=== PATIENT | female | born 1945 | race Caucasian/White ===

== ENCOUNTER 2018-12-15 15:18 | Emergency (ER) | payer MEDICARE, OTHER ==
[~2018-12-15] VITALS: Ht 162.6 cm; Wt 76.2 kg
[2018-12-15] MEDS ORDERED: LIDOCAINE 1% INJ 20 ML 20 ML VIAL ONE (15:27)
[2018-12-15] MEDS ORDERED: TETANUS,DIPTH,PERTUSS P/F (BOOSTRIX) 0.5 ML VIAL IM ONE ×2 (15:27→15:30)
[2018-12-15] MEDS ORDERED: LIDOCAINE 1% INJ 20 ML 20 ML VIAL INJ ONE (15:30)
--- NOTE | 2018-12-15 15:30 | ED Upper Extremity ---
General Chief Complaint: Laceration Stated Complaint: LACERATION ON MIDDLE FINGER OF LT HAND Source: patient Exam Limitations: no limitations History of Present Illness Date Seen by Provider: December 15, 2018 Time Seen by Provider: 15:23 Initial Comments Patient presents to ER by private conveyance with chief complaint that just prior to arrival she cut her left hand middle finger with a battery operated hand trimmer causing a laceration on the palmar side. She has not had a tetanus shot in over 15 years. She is not on blood thinners. She is on Keflex daily for interstitial cystitis with frequent UTIs 250 milligrams a day. Allergies and Home Medications Allergies Coded Allergies: levofloxacin (Verified Allergy, Unknown, 12/15/18) morphine (Verified Allergy, Unknown, 12/15/18) sulfamethoxazole (Verified Allergy, Unknown, 12/15/18) Home Medications Amoxicillin/Potassium Clav 1 Each Tablet, 1 EACH PO BID Prescribed by: MANOJ VELASCO on 12/15/18 8114 Patient Home Medication List Home Medication List Reviewed: Yes Review of Systems Constitutional: No chills, No diaphoresis EENTM: No ear discharge, No ear pain Respiratory: No cough, No short of breath Cardiovascular: No chest pain, No edema Past Ofaiilg-Azmujc-Osinza Hx Patient Social History Alcohol Use: Denies Use Recreational Drug Use: No Smoking Status: Never a Smoker Physical Exam Vital Signs Vital Signs - First Documented 12/15/18 15:25 Temp 96.9 Pulse 109 Resp 18 B/P (MAP) 134/94 (107) Pulse Ox 96 Capillary Refill : Height, Weight, BMI Height: '" Weight: lbs. oz. kg; BMI Method: General Appearance: WD/WN, mild distress HEENT: PERRL/EOMI, normal ENT inspection, TMs normal, pharynx normal Cardiovascular: normal peripheral pulses, regular rate, rhythm Respiratory: no respiratory distress, no accessory muscle use Hand: normal ROM, Left, laceration (left hand third digit palmar side 2.5 cm flap-shaped be laceration without foreign debris), nail injury Neurologic/Tendon: normal sensation, normal motor functions, normal tendon functions, responds to pain, no evidence tendon injury Neurologic/Psychiatric: no motor/sensory deficits, alert, normal mood/affect, oriented x 3 Procedures/Interventions Wound Location: Upper Extremities Other Wound Location Left hand third digit palmar side Wound Length (cm): 2.5 Wound's Depth, Shape: flap, sub Q Wound Explored: no foreign body removed Irrigated w/ Saline (ccs): 200 Betadine Prep?: Yes (chlorhexidine) Anesthesia: 1% Lidocaine Volume Anesthetic (ccs): 4 Wound Debrided: minimal Suture: Ethlion Suture Size: 4-0 Number of Sutures: 5 Progress Patient's wounds cleaned thoroughly with chlorhexidine soap water and then soaked with Betadine. Digital block was applied and a small 1 cc local block was applied with 1% lidocaine without epinephrine. When the patient was numb we then reapproximated skin edges with 5 simple interrupted sutures and the wound was hemostatic. Patient tolerated procedure well. Progress/Results/Core Measures Results/Orders My Orders Orders - MANOJ VELASCO Lidocaine 1% Inj 20 Ml (Xylocaine 1% Inj (12/15/18 15:30) Dipht,Pertuss(Acell),Tet Adult (Boostrix (12/15/18 15:30) Lidocaine 1% Inj 20 Ml (Xylocaine 1% Inj (12/15/18 15:27) Dipht,Pertuss(Acell),Tet Adult (Boostrix (12/15/18 15:27) Medications Given in ED Current Medications Medications Dose Ordered Sig/John Route Start Time Stop Time Status Last Admin Dose Admin Diphtheria/ Tetanus/Acell Pertussis 0.5 ml ONCE ONCE IM 12/15/18 15:30 12/15/18 15:31 DC 12/15/18 15:34 0.5 ML Lidocaine HCl 20 ml ONCE ONCE INJ 12/15/18 15:30 12/15/18 15:31 DC 12/15/18 15:33 5 ML Vital Signs/I&O 12/15/18 12/15/18 15:25 15:59 Temp 96.9 96.9 Pulse 109 109 Resp 18 18 B/P (MAP) 134/94 (107) 134/94 (107) Pulse Ox 96 96 Progress Progress Note : Time: 15:54 Progress Note T Dep and Augmentin. Patient has pain pills at home if she needs them. Departure Impression Primary Impression: Laceration of finger of left hand without damage to nail Qualified Codes: S61.213A - Laceration without foreign body of left middle finger without damage to nail, initial encounter Disposition: HOME, SELF-CARE Condition: Improved Departure-Patient Inst. Decision time for Depature: 15:54 Referrals: DENA FRANCO APRN (PCP/Family) Primary Care Physician Patient Instructions: Laceration Repair With Stitches (DC) Add. Discharge Instructions: Keep the wound clean with regular soap and water only. You may apply a small layer of Vaseline under the dressing. Change the dressing daily or as it becomes soiled. Do not submerse her hand and water to wash dishes or bathe. It's okay to shower or wash your hands. If you start to have some bleeding apply direct pressure and raise it above the level of your heart. bend up the Augmentin and take one tablet twice a day for the next 3 days to prevent infection. Discontinue your Keflex while you're on the Augmentin. It's okay to resume Keflex after you're done with the Augmentin. Follow-up in 10 days with primary care or return to the ER to have your sutures removed. Return to the doctor sooner if you start to see increasing pain, swelling, redness or discharge from the wound. All discharge instructions reviewed with patient and/or family. Voiced understanding. Scripts Amoxicillin/Potassium Clav (Augmentin 875-125 Tablet) 1 Each Tablet 1 EACH PO BID for 3 Days, #6 TAB 0 Refills Prov: MANOJ VELASCO 12/15/18 MANOJ VELASCO December 15, 2018 15:30
[2018-12-15] MEDS ORDERED: AMOX-358 PO (15:57)
[2018-12-15 15:59] VITALS: BP 134/94
== END 2018-12-15 16:00 | disposition home or self-care (01) ==
LOC: ER FS 15:20
DX: S61.213A Laceration without foreign body of left middle finger without damage to nail, initial encounter (principal); Z88.5 Allergy status to narcotic agent; Z23 Encounter for immunization; Z88.2 Allergy status to sulfonamides; Z88.8 Allergy status to other drugs, medicaments and biological substances; W29.8XXA Contact with other powered hand tools and household machinery, initial encounter
CPT/HCPCS: 12042; 64450; 90471; 90715

== ENCOUNTER → 2019-08-08 | Outpatient (CLI) | payer MEDICARE, OTHER ==
[~2019-08-08] MED LIST: AMOX-358 PO
--- NOTE | 2019-08-08 09:46 | Diagnostic Imaging Report ---
INDICATION: Mid back pain. Time of exam 8:41 AM Frontal and lateral views of the thoracic spine were obtained. Curvature and alignment is normal. Vertebral body heights are maintained. No compression fracture is seen. Pedicles and paraspinous line are intact. There is mild generalized spondylosis. IMPRESSION: No acute bony abnormality is detected. Dictated by: Dictated on workstation # [id number]
== END ==
LOC: RAD FS 08:34
PROVIDERS: ATTEND Nurse Practitioner Family
DX: M54.9 Dorsalgia, unspecified (principal)
CPT/HCPCS: 72070

== ENCOUNTER → 2019-12-21 | Outpatient (CLI) | payer MEDICARE, OTHER ==
--- NOTE | 2019-12-21 12:49 | Diagnostic Imaging Report ---
INDICATION: Cough. TIME OF EXAM: 12:33 PM No prior studies are available for comparison. FINDINGS: The heart size is normal. Tiny calcified nodules left mid and upper lung tapia are noted consistent with granulomas. No infiltrates are seen. No effusion or pneumothorax is detected. Pulmonary vascularity is normal. IMPRESSION: No acute cardiopulmonary process is detected. Dictated by: Dictated on workstation # [id number]
== END ==
LOC: RAD FS 12:16
PROVIDERS: ATTEND Nurse Practitioner Family
DX: R05 Cough (principal)
CPT/HCPCS: 71046

== ENCOUNTER → 2019-12-25 | Outpatient (CLI) | payer MEDICARE, OTHER ==
--- NOTE | 2019-12-25 10:33 | Diagnostic Imaging Report ---
PROCEDURE: CT chest without contrast. TECHNIQUE: Multiple contiguous axial images were obtained through the chest without the use of intravenous contrast. Auto Exposure Controls were utilized during the CT exam to meet ALARA standards for radiation dose reduction. INDICATION: Chronic cough. FINDINGS: There are a few calcified granulomas. There are no suspicious pulmonary nodules, masses or infiltrates. There is no pleural or pericardial fluid. No pneumothorax. Heart size is normal. Thoracic aorta is normal in caliber. There are coronary artery calcifications. There is no pathologically enlarged adenopathy in the chest. The visualized intra-abdominal structures are unremarkable. There are mild degenerative changes in the spine. IMPRESSION: No suspicious pulmonary nodules, masses or infiltrates. Coronary artery calcification. Dictated by: Dictated on workstation # [id number]
== END ==
LOC: RAD FS 10:06
PROVIDERS: ATTEND Nurse Practitioner Family
DX: R05 Cough (principal); J84.10 Pulmonary fibrosis, unspecified
CPT/HCPCS: 71250

== ENCOUNTER → 2020-08-16 | Outpatient (CLI) | payer MEDICARE, OTHER ==
--- NOTE | 2020-08-16 12:38 | Diagnostic Imaging Report ---
INDICATION: Pain in the right shoulder, fall. TIME OF EXAM: 9:10 a.m. FINDINGS: Two views of the right shoulder demonstrate glenohumeral joint degenerative changes. There is spurring along the humeral head and neck junction. Glenohumeral and acromioclavicular alignment are normal. Glenohumeral space is normal. No fracture or dislocation is seen. IMPRESSION: Glenohumeral joint degenerative changes. No acute bony abnormality is detected. Dictated by: Dictated on workstation # [id number]
== END ==
LOC: RAD FS 09:04
PROVIDERS: ATTEND Nurse Practitioner Family
DX: M19.011 Primary osteoarthritis, right shoulder (principal)
CPT/HCPCS: 73030

== ENCOUNTER 2021-05-16 09:02 | Emergency (ER) | payer MEDICARE, OTHER ==
[~2021-05-16] VITALS: Ht 163 cm; Wt 81.5 kg
--- OUTSIDE RECORDS SUMMARY | 2021-05-16 09:07 | XMS REPORT | Clinical Summary ---
Author Author [facility] Organization [facility] Address Unknown Phone Unavailable Care Team Providers Care Truck Jumper Name Role Phone PCP Unavailable Allergies Not on File Medications Not on file Active Problems Not on file Social History Date Tobacco Use Types Packs/Day Years Used Never Assessed Sex Assigned at Date Recorded Not on file Last Filed Vital Signs Not on file Plan of Treatment Health Maintenance Due Date Last Done Comments Advance Directive has 1945 been filed Hepatitis C Screen 1945 Medicare Annual Wellness 1945 Td/Tdap# 1945 Colorectal Screening via 1997 Colonoscopy Zoster Vaccine# (1 of 2) 1997 Advance Directive 2012 Conversation Depression Screening 2012 PHQ-9 # Fall Risk Assessment # 2012 Osteoporosis Screening 2012 Patient Needs Advance 2012 Directive Influenza Vaccine (#1) 2021 06/26/2019, 06/14/2018, 05/10/2017, Additional history exists Mammogram Screening 06/26/2021 06/26/2019 Pneumococcal Vaccine: 65+ Completed 06/07/2015, Years 12/23/2012 COVID-19 Vaccine Completed 10/29/2020, 10/01/2020 Results Not on filefrom Last 3 Months Insurance Type Payer Benefit Subscriber ID Effective Phone Address Plan / Dates Group Medicare MEDICARE MEDICARE [id number] 2020- [place] [address] [place], [place] [address] (Home) [place], [place] [address] Personal/F Self 1945 [address] (Home) [place], [place] [address] Advance Directives For more information, please contact: [phone] Patient Web Marketing Coordinator Explanation Type Date Recorded Health Care Directive
--- OUTSIDE RECORDS SUMMARY | 2021-05-16 09:07 | XMS REPORT | Clinical Summary ---
Author Author [facility] Organization [facility] Address Unknown Phone Unavailable Care Team Providers Care Ladle Filler Name Role Phone Ritesh Mccartney MD Unavailable Maria Elena Velasco MD Unavailable Tiki Henry RN Unavailable Unavailable Destiny Clement RN Unavailable Unavailable Heather Herman MD PCP Nilsa Morales MD Unavailable Unavailable Source Comments Some departments are not documenting in the electronic medical record. If you d o not see the information that you expected, contact Release of Information in [facility] [employer] Information Management department at [phone] for further assistan ce in locating additional records.[facility] Allergies Comments Active Allergy Reactions Severity Noted Date Levofloxacin MUSCLE PAIN Medium 07/18/2015 pt states does not help with pain. la Morphine SEE COMMENTS Low 07/18/2015 Sulfamethoxazole-Trimetho HIVES Medium 07/09 prim Medications End Date Status Medication Sig Dispensed Refills Start Date Active gabapentin (NEURONTIN) Take 300 mg 0 300 mg capsule by mouth twice daily. Active hyoscyamine (ANASPAZ; Place 125 mcg 0 NULEV; SYMAX FASTABS; under tongue HYOMAX-FT; ED-SPAZ; every 4 hours OSCIMIN) 0.125 mg rapid as needed for dissolve tablet Other... (bladder spasms). Active levothyroxine (SYNTHROID) Take 50 mcg 0 50 mcg tablet by mouth daily. Active ketorolac (TORADOL) 10 mg Take 10 mg by 0 tablet mouth every 6 hours as needed for Pain. Active meloxicam (MOBIC) 15 mg Take 15 mg by 0 tablet mouth daily. Active acetaminophen (TYLENOL) Take 2,000 mg 0 500 mg tablet by mouth every 3-4 hours as needed for Pain. Active docusate (COLACE) 100 mg Take 200 mg 0 capsule by mouth daily. Active Problems Problem Noted Date Anemia 08/06/2015 Interstitial cystitis 07/18/2015 Overview: Formatting of this note might be differ ent from the original. 3 year history of pelvic/bladder pain, L ast Assessment & Plan: Formatting of this note might be differ ent from the original. Patient is a 70 year old female with bl adder pain, urgency, frequency, and dysuria concerning for IC. Interested i n interstim system - discussed neuromodulation was not designed for pa in associated with IC, however many patients do report improvement of sympt oms of urge/frequency, as well as pain after placement. Will need to comp lete symptom diary prior to procedure. - Will plan on proceeding to the OR on 08/20/15 with lead placement. - Consent obtained in clinic today aft er discussing risks and benefits which include bleeding, infection, maeve rgic reaction to anesthesia, problems with heart, blood pressure, DV T, pulmonary embolism, heart attack, stroke, , recurrence, hernia, wagner ge to surrounding structure, wound infection, need for further procedures. Specifically - failure to improve symptoms, infection, neural injury, erin d migration, need for revision, and urinary retention. - Pre-anesthesia testing: will contact patient - Labs: n/a - Consults: none - Imaging: none - Antibiotics status controller to the OR: vanc/ gent, no additional medications - Day of surgery orders placed Surgical History Surgery Date Site/Laterality Comments CYSTOCELE REPAIR 2009, 2013 w/ Bladder Sling 20 14 CYSTOURETHROSCOPY 2010 HX HYSTERECTOMY 1981 THYROIDECTOMY 1969 LUMBAR LAMINECTOMY 1992 SHOULDER SURGERY 2007 Right Medical History Medical History Date Comments Arthritis Dyslipidemia Urinary tract infection Hypothyroidism HTN (hypertension) Interstitial cystitis Atonic bladder Trigeminal neuralgia Rheumatoid arthritis (HCC) Kidney stones Stomach ulcer Anemia 08/06/2015 Social History Date Tobacco Use Types Packs/Day Years Used Never Smoker Smokeless Tobacco: Never Used Comments Alcohol Use Standard Drinks/Week No 0 (1 standard drink = 0.6 o z pure alcohol) Sex Assigned at Date Recorded Not on file Last Filed Vital Signs Reading Time Taken Comments Vital Sign 125/67 08/05/2015 9:40 AM GOLD CUTTER Blood Pressure 88 08/05/2015 9:40 AM GOLD CUTTER Pulse 36.8 C (98.2 F) 08/05/2015 9:40 AM GOLD CUTTER Temperature - - Respiratory Rate 99% 08/05/2015 9:40 AM GOLD CUTTER Oxygen Saturation - - Inhaled Oxygen Concentration 61.7 kg (136 lb) 08/05/2015 9:40 AM GOLD CUTTER Weight 162.6 cm (5' 4") 08/05/2015 9:40 AM GOLD CUTTER Height 23.34 08/05/2015 9:40 AM GOLD CUTTER Body Mass Index Plan of Treatment Health Maintenance Due Date Last Done Comments MEDICARE ANNUAL WELLNESS 1945 VISIT DTAP/TDAP VACCINES (1 - 1965 Tdap) HEPATITIS C SCREENING 1965 PHYSICAL (COMPREHENSIVE) 1965 EXAM BREAST CANCER SCREENING 1987 COLORECTAL CANCER 1997 SCREENING SHINGLES RECOMBINANT 1997 VACCINE (1 of 2) OSTEOPOROSIS 2012 SCREENING/MONITORING PNEUMONIA (PPSV23) 2012 VACCINE (1 of 1 - PPSV23) INFLUENZA VACCINE 03/09/2021 Results Not on filefrom Last 3 Months Insurance Type Payer Benefit Subscriber ID Effective Phone Address Plan / Dates Group Medicare MEDICARE MEDICARE [id number] 2012- PART A AND Present B PPO DICKDAVID MALLY [id number] 2014- [employer] [id number] [facility] (Home) [place] [phone] Advance Directives Patient Restaurant Kitchen Manager Explanation Type Date Recorded Advance 08/19/2015 2:41 PM Directive/DPOA
--- NOTE | 2021-05-16 09:12 | ED Headache ---
General Chief Complaint: Head/Cervical Problems Stated Complaint: NECK PAIN; HEADACHE History of Present Illness Date Seen by Provider: May 16, 2021 Time Seen by Provider: 09:07 Initial Comments 75-year-old female presents with sharp/stabbing pain that started yesterday. The pain is in her back of her upper left side of her neck and up the left side of her head. She reports it just comes and goes a very sharp stabbing. That seems to been outside of her scalp. Patient reports she has had a similar epi sode of neuralgia that was trigeminal. That was treated with Tegretol that seem to have some relief. Patient denies any injury, recent illness, rash or other systemic complaints. Allergies and Home Medications Allergies Coded Allergies: levofloxacin (Verified Allergy, Unknown, 12/15/18) morphine (Verified Allergy, Unknown, 12/15/18) sulfamethoxazole (Verified Allergy, Unknown, 12/15/18) Patient Home Medication List Home Medication List Reviewed: Yes Amoxicillin/Potassium Clav (Augmentin 875-125 Tablet) 1 Each Tablet, 1 EACH PO BID Prescribed by: MANOJ VELASCO on 12/15/18 155 Baclofen (Baclofen) 5 Mg Tablet, 5 MG PO TID Prescribed by: PACO JULIEN on 05/16/21924 Carbamazepine (Tegretol) 100 Mg/5 Ml Oral.susp, 100 MG PO BID Prescribed by: PACO JULIEN on 05/16/21924 Review of Systems Review of Systems Constitutional: see HPI Eyes: No Symptoms Reported Ears, Nose, Mouth, Throat: no symptoms reported Respiratory: no symptoms reported Cardiovascular: no symptoms reported Genitourinary: no symptoms reported Musculoskeletal: no symptoms reported Skin: no symptoms reported Psychiatric/Neurological: See HPI Past Cgeaffh-Emseie-Oifyqd Hx Seasonal Allergies Seasonal Allergies: No Past Medical History Arthritis Physical Exam Vital Signs Vital Signs - First Documented 05/16/21 09:10 Temp 36.3 Pulse 94 Resp 16 B/P (MAP) 155/94 (114) Pulse Ox 97 O2 Delivery Room Air Capillary Refill : Height, Weight, BMI Height: 5'4.00" Weight: 168lbs. oz. 76.978192ak; BMI Method:Stated General Appearance: other (Patient with sporadic sharp stabbing pain in the left occipital occipital region consistent with occipital neuralgia) HEENT: PERRL/EOMI, normal ENT inspection, TMs normal Cardiovascular: normal peripheral pulses, regular rate, rhythm Respiratory: lungs clear, normal breath sounds Gastrointestinal: non tender, soft Extremities: non-tender, normal inspection Psychiatric: alert, oriented x 3, depressed affect Crainal Nerves: normal speech, PERRL Coordination/Gait: normal finger to nose, normal gait Motor/Sensory: no motor deficit, no pronator drift Skin: normal color, warm/dry Procedures/Interventions Suture Size: 4-0 Progress/Results/Core Measures Results/Orders My Orders Orders - JULIENLAZARUSPACO L DO Orphenadrine Inj (Ed Only) (Norflex Inje (05/16/21 09:14) Vital Signs/I&O 05/16/21 09:10 Temp 36.3 Pulse 94 Resp 16 B/P (MAP) 155/94 (114) Pulse Ox 97 O2 Delivery Room Air Progress Progress Note : Progress Note Patient with symptoms consistent with occipital neuralgia. I will give her baclofen along with Tegretol. I was going to prescribe her gabapentin but she does not like and is used Tegretol in the past for her trigeminal neuralgia. Recommend she follow-up with her primary care provider in a couple days for recheck of her symptoms Departure Impression Primary Impression: Occipital neuralgia of left side Disposition: 01 HOME, SELF-CARE Condition: Stable Departure-Patient Inst. Referrals: DENA FRANCO APRN (PCP) Primary Care Physician [facility] (Family) Primary Care Physician Patient Instructions: Radiculopathy Add. Discharge Instructions: Follow-up with your primary care provider and 3 to 4 days for recheck of today's symptom All discharge instructions reviewed with patient and/or family. Voiced understa nding. Scripts Carbamazepine (Tegretol) 100 Mg/5 Ml Oral.susp 100 MG PO BID, #10 ML Prov: JULIEN,PACO L DO 05/16/21 Baclofen (Baclofen) 5 Mg Tablet 5 MG PO TID, #15 TAB Prov: JULIEN,PACO L DO 05/16/21 JULIEN,PACO L DO May 16, 2021 09:12
[2021-05-16] MEDS ORDERED: ORPHENADRINE 60 MG/2 ML (NORFLEX) AMP (ED ONLY) IM STA (09:14)
[2021-05-16] MEDS ORDERED: CARB100O PO (09:25)
[2021-05-16] MEDS ORDERED: BACL5TAB PO (09:25)
[2021-05-16 10:07] VITALS: BP 155/94
== END 2021-05-16 09:54 | disposition home or self-care (01) ==
LOC: EDUNIT# 09:02 → ER FS 09:03
DX: M54.81 Occipital neuralgia (principal)
CPT/HCPCS: 99284

== ENCOUNTER → 2022-03-23 | Outpatient (CLI) | payer MEDICARE, OTHER ==
[~2022-03-23] MED LIST changes: +BACL5TAB PO; +CARB100O PO; +GADOTERATE 0.5 MMOL/ML (CLARISCAN) 15 ML VIAL IV ONE
--- NOTE | 2022-03-23 10:06 | Diagnostic Imaging Report ---
CLINICAL INDICATION: Patient with migraines. EXAM: MRI of the brain performed without and with 9 cc of IV contrast. Sequences include axial DWI, ADC map, axial gradient echo, axial FLAIR, axial T1, axial T2, axial T1 post IV contrast whole brain, coronal T1 fat-sat post IV contrast whole brain, and sagittal T1 fat-sat post IV contrast whole brain. COMPARISON: None. FINDINGS: There is no evidence of acute cerebral infarct, intracranial hemorrhage, or gross mass effect. There is no abnormal IV contrast enhancement. The brain parenchymal volume appears appropriate for patient's age. There are diffuse focal, patchy, and confluent areas of high T2 signal white matter changes involving both cerebral hemispheres, periventricular regions, and terrance, likely representing chronic small vessel ischemic disease and leukoaraiosis. There is normal whitaker-white matter distinction. There is no significant midline shift or herniation. [place] vascular structures show no gross abnormality as visualized. The pituitary gland, sella, and suprasellar regions are unremarkable as visualized. There is no evidence of hydrocephalus. The basal cisterns are unremarkable. The skull, extracranial soft tissue, and orbits are unremarkable. The paranasal sinuses are unremarkable. Temporal bones show no significant abnormality. IMPRESSION: 1: There is no evidence of an acute intracranial process. 2: There are age-related brain parenchymal changes including chronic small vessel ischemic disease and leukoaraiosis. Dictated by: Dictated on workstation # [id number]
== END ==
LOC: RAD 08:03
PROVIDERS: ATTEND Nurse Practitioner Family
DX: G31.1 Senile degeneration of brain, not elsewhere classified (principal); G43.009 Migraine without aura, not intractable, without status migrainosus; I67.82 Cerebral ischemia; I67.81 Acute cerebrovascular insufficiency
CPT/HCPCS: 70553

== ENCOUNTER → 2022-06-02 | Outpatient (CLI) | payer MEDICARE, OTHER ==
[~2022-06-02] MED LIST changes: -GADOTERATE 0.5 MMOL/ML (CLARISCAN) 15 ML VIAL IV ONE
--- NOTE | 2022-06-02 10:33 | Diagnostic Imaging Report ---
INDICATION: LUMBAR RADICULOPATHY TECHNIQUE: AP, Lateral and Spot imaging of the lumbar spine CORRELATION STUDY: None FINDINGS: Approximately 7 mm likely degenerative anterolisthesis of L4 on L5. Alignment otherwise anatomic. Lumbar vertebral body heights are maintained. Various degrees of mild to moderate disc space narrowing. Most severe at L5-S1 level where there is marked narrowing. Moderate narrowing T12-L1 and T11-T12 levels. Hypertrophic facet arthropathy L5-S1, L4-L5 level. SI joints unremarkable. IMPRESSION: No radiographic evidence for acute bony abnormality of the lumbar spine. Moderately advanced multilevel lumbar spondylosis. Various degrees disc space narrowing and hypertrophic facet arthropathy. Most pronounced lower lumbar spine. Dictated by: Dictated on workstation # [id number]
== END ==
LOC: RAD FS 09:49
PROVIDERS: ATTEND Nurse Practitioner Family
DX: M47.26 Other spondylosis with radiculopathy, lumbar region (principal); M51.16 Intervertebral disc disorders with radiculopathy, lumbar region
CPT/HCPCS: 72100

== ENCOUNTER → 2022-12-18 | Outpatient (CLI) | payer MEDICARE, OTHER ==
[~2022-12-18] MED LIST changes: +GADOTERATE 0.5 MMOL/ML (CLARISCAN) 15 ML VIAL IV ONE
--- NOTE | 2022-12-18 17:10 | Diagnostic Imaging Report ---
INDICATION: Spondylosis, pain. COMPARISON: Imaging of the lumbar spine from same date. TECHNIQUE: Single radiograph of the pelvis dated December 18, 2022. FINDINGS: Degenerative changes within the partially visualized lower lumbar spine. Mild degenerative changes in the bilateral sacroiliac joints without abnormal widening of the sacroiliac joints. The pubic symphysis is intact. No acute fracture or dislocation. No destructive osseous process. Phleboliths within the pelvis. Minimal degenerative changes of the bilateral hips. No suspicious radiopaque foreign body. IMPRESSION: No acute osseous abnormality with scattered osseous degenerative changes, greatest within the partially visualized lower lumbar spine. Dictated by: Dictated on workstation # [id number]
--- NOTE | 2022-12-18 17:50 | Diagnostic Imaging Report ---
INDICATION: Back pain AP, lateral and flexion extension views of the lumbar spine are obtained and compared to 06/02/2022. Lumbar vertebrae are normal in height. There is no compression deformity. There is mild anterolisthesis of L4 on L5 as well as L5 on S1. There is marked disc space narrowing at L5-S1. There is diffuse facet degenerative change throughout the lumbar levels. The anterolisthesis of L4 on L5 and L5 on S1 does not appear to change between flexion and extension. IMPRESSION: Degenerative changes in the lumbar spine, as described above, with no acute fracture. Anterolisthesis of L4 on L5 as well as L5 on S1 appears similar to the prior study and does not change between flexion and extension. Dictated by: Dictated on workstation # [id number]
--- NOTE | 2022-12-18 18:10 | Diagnostic Imaging Report ---
PROCEDURE: MRI lumbar spine with and without contrast. TECHNIQUE: Multiplanar, multisequence MRI of the lumbar spine was performed with and without contrast. INDICATION: Spondylosis, lumbar region. COMPARISON: Lumbar spine of 06/02/2022. FINDINGS: There is approximately 3 mm of anterolisthesis of L4 on L5 that is due to severe facet osteoarthritis. No fracture or concerning marrow-replacing process. No Modic endplate changes within the lumbar spine. Distal thoracic cord is normal in appearance. No concerning abnormality in the retroperitoneum. On postcontrast imaging, there is no pathologic enhancement. L1-L2: No spinal canal or neuroforaminal stenosis. L2-L3: No spinal canal or neuroforaminal stenosis. L3-L4: Disc bulging with facet osteoarthritis and ligamentum flavum hypertrophy results in mild spinal canal stenosis but no mass effect on the intrathecal nerve roots. Mild bilateral neuroforaminal stenosis without mass effect on the exiting nerve roots. L4-L5: Central disc protrusion, severe facet osteoarthritis and ligamentum flavum hypertrophy causes severe spinal canal stenosis with compression of all the intrathecal nerve roots. The anterolisthesis and disc bulging contribute to moderate neuroforaminal stenosis without mass effect on the exiting nerve roots. L5-S1: Left hemilaminectomy. Near-complete intervertebral height loss. Minimal residual disc material is present posteriorly. No spinal canal stenosis. Disc material does abut the left S1 nerve root in the lateral recess. IMPRESSION: 1. Severe spinal canal stenosis at L4-L5 where there is compression of all the intrathecal nerve roots due to a combination of grade 1 anterolisthesis, disc protrusion and facet osteoarthritis. Dictated by: Dictated on workstation # [id number]
== END ==
LOC: RAD 08:57
PROVIDERS: ATTEND Orthopaedic Surgery
DX: M47.817 Spondylosis without myelopathy or radiculopathy, lumbosacral region (principal); M47.816 Spondylosis without myelopathy or radiculopathy, lumbar region; M48.061 Spinal stenosis, lumbar region without neurogenic claudication; M43.16 Spondylolisthesis, lumbar region; M51.26 Other intervertebral disc displacement, lumbar region; M43.17 Spondylolisthesis, lumbosacral region; M48.07 Spinal stenosis, lumbosacral region
CPT/HCPCS: 72110; 72158; 72170